=== PATIENT | male | born 1965 | race Caucasian/White ===

== ENCOUNTER 2016-07-06 11:48 | Emergency (ER) | payer OTHER ==
[2016-07-06 12:00] VITALS: RESP 16; O2SAT 98
[2016-07-06] MEDS ORDERED: NS 1,000 ML IV ONE (12:30)
[2016-07-06 12:38] LABS: % IMMATURE GRANULYOCYTES 0.4 % (0.0-1.1); ABSOLUTE IMMATURE GRANULOCYTES 0.03 10^3/uL (0.00-0.10); ADD DIFF? NO; ADD MORPH? NO; ADD SCAN? NO; ATYPICAL LYMPHOCYTE FLAG 0 (0-99); FRAGMENT RBC FLAG 0 (0-99); HEMATOCRIT 44.8 % (40.0-51.0); HEMOGLOBIN 15.7 g/dL (13.7-17.5); LEFT SHIFT FLG 0 (0-99); LIPEMIA HEMOLYSIS FLAG 90 (0-99); MEAN CELL HEMOGLOBIN 30.9 pg (27.9-34.1); MEAN CELL VOLUME 88.2 fL (81.5-99.8); MEAN PLATELET VOLUME 10.8 fL (8.7-11.7); PLATELET CLUMPS FLAG 0 (0-99); PLATELET COUNT 212 10^3/uL (150-400); RED BLOOD CELL COUNT 5.08 10^6/uL (4.40-6.38); RED CELL DISTRIBUTION WIDTH 12.1 % (11.5-15.2)
--- NOTE | 2016-07-06 12:39 | CPEKG ---
Heart Rate: 50 RR Interval: 1200 P-R Interval: 192 QRSD Interval: 102 QT Interval: 400 QTC Interval: 365 P [place]: 77 QRS [place]: 46 T Wave [place]: 53 EKG Severity - NORMAL ECG - EKG Impression: SINUS RHYTHM Electronically Signed By: Prabhakar Anthony 06-Jul-2016 14:16:13
[2016-07-06 12:50] LABS: ANION GAP 16 mEq/L (8-16); CALCIUM 9.2 mg/dL (8.5-10.4); CARBON DIOXIDE 26 mEq/l (22-31); CHLORIDE 98 mEq/L (97-110); CREATININE 0.8 mg/dL (0.7-1.3); GLOMERULAR FILTRATION RATE > 60; GLUCOSE 90 mg/dL (70-100); SODIUM 140 mEq/L (134-144)
[2016-07-06 13:26] LABS: TROPONIN I < 0.012 ng/mL (0-0.034)
--- NOTE | 2016-07-06 13:32 | EDPHY ---
H & P Time Seen by Provider: 07/06/16 12:07 HPI/ROS: Chief complaint. Facial numbness HPI. 42-year-old male presents emergency department with complaint that yesterday afternoon he had some pain above his left eyebrow. It resolved after taking Advil. Return this morning. About 9:00 a.m. he developed left facial altered sensation that he describes as Novocain wearing off. His tongue is okay. His vision is okay. He has no neck pain, chest pain, shortness of breath , abdominal pain. No weakness or altered sensation to arms or legs. No similar symptoms previously. ROS Constitutional. no fever/chills, no weakness Eyes. no problems with vision ENT. no sore throat, no nasal drainage Cardiovascular. no chest pain Respiratory. no shortness of breath, no cough Abdominal. no abdominal pain, no nausea/vomiting, no diarrhea . no problems urinating MS. no calf pain/swelling, no neck/back pain, no joint pain Skin. no rash Lymph. no swollen glands Neuro. Left facial altered sensation Past Medical/Surgical History: Anal fissure and cervical radiculopathy Social History: Single, nonsmoker, no alcohol Smoking Status: Never smoked Physical Exam: General Appearance: Alert well-developed male mild distress vital signs are stable Eyes: Pupils equal and round no pallor or injection. ENT, Mouth: Mucous membranes are moist. Respiratory: There are no retractions, lungs are clear to auscultation. Cardiovascular: Regular rate and rhythm. Gastrointestinal: Abdomen is soft and nontender, no masses, bowel sounds normal. Neurological: Awake and alert, sensory and motor exams grossly normal. Speech is normal. Cranial nerves are intact. To my light touch on both sides of his face he feels that the sensation is equal but he feels that his sensation is not quite normal on the left though I cannot demonstrate this. There is no pronator drift. [id number] and [id number] are intact Skin: Warm and dry, no rashes. Musculoskeletal: Neck is supple nontender. Extremities symmetrical, full range of motion. Psychiatric: Patient is oriented X 3, there is no agitation. Constitutional: Initial Vital Signs Heart Rate 63 07/06/16 11:57 Respiratory Rate 16 07/06/16 11:57 Blood Pressure 130/74 H 07/06/16 11:57 O2 Sat (%) 98 07/06/16 11:57 O2 Delivery Mode Room Air Allergies/Adverse Reactions: No Known Allergies Allergy (Verified 07/06/16 12:00) Medical Decision Making - Diagnostics EKG Interpretation: EKG interpreted by me shows normal sinus rhythm with normal interval and axis. QRS is normal there is no significant ST elevation or depression. There is no arrhythmia. The rate is 50 Procedures: IV normal saline, monitor Prednisone 60 mg by mouth ED Course/Re-evaluation: I consulted and discussed case with Dr. ortiz, neurology who recommends MRI. He feels that as the patient really has no risk factors and has normal exam and symptoms have been somewhat present since yesterday afternoon this may be developing Charles's palsy. He recommends either transfer to [facility] for MRI today or to start the patient on prednisone today and he will see the patient in the office tomorrow. I have discussed these options with the patient. We discussed risks and benefits of these courses of treatment Re-evaluation 1:30 p.m.--patient is stable. He appears neurologically stable though he does tell me he still feels somewhat altered sensation on the left cheek. There is no evidence for facial weakness. I again offered to arrange MRI today of however he is comfortable waiting till tomorrow to see Neurology Differential Diagnosis: I have considered CVA, brain tumor, migraine, anxiety, Charles's palsy - Data Points Laboratory Results: Laboratory Results 07/06/16 12:07 07/06/16 12:07 07/06/16 07/06/16 12:07 12:07 WBC 7.80 10^3/uL 10^3/uL (3.80-9.50) RBC 5.08 10^6/uL 10^6/uL (4.40-6.38) Hgb 15.7 g/dL g/dL (13.7-17.5) Hct 44.8 % % (40.0-51.0) MCV 88.2 fL fL (81.5-99.8) MCH 30.9 pg pg (27.9-34.1) MCHC 35.0 g/dL g/dL (32.4-36.7) RDW 12.1 % % (11.5-15.2) Plt Count 212 10^3/uL 10^3/uL (150-400) MPV 10.8 fL fL (8.7-11.7) Neut % (Auto) 62.9 % % (39.3-74.2) Lymph % (Auto) 27.3 % % (15.0-45.0) [place] % (Auto) 7.4 % % (4.5-13.0) Eos % (Auto) 1.5 % % (0.6-7.6) Baso % (Auto) 0.5 % % (0.3-1.7) Nucleat RBC Rel Count 0.0 % % (0.0-0.2) Absolute Neuts (auto) 4.90 10^3/uL 10^3/uL (1.70-6.50) Absolute Lymphs (auto) 2.13 10^3/uL 10^3/uL (1.00-3.00) Absolute Monos (auto) 0.58 10^3/uL 10^3/uL (0.30-0.80) Absolute Eos (auto) 0.12 10^3/uL 10^3/uL (0.03-0.40) Absolute Basos (auto) 0.04 10^3/uL 10^3/uL (0.02-0.10) Absolute Nucleated RBC 0.00 10^3/uL 10^3/uL (0-0.01) Immature Gran % 0.4 % % (0.0-1.1) Immature Gran # 0.03 10^3/uL 10^3/uL (0.00-0.10) Sodium 140 mEq/L mEq/L (134-144) Potassium 4.0 mEq/L mEq/L (3.5-5.2) Chloride 98 mEq/L mEq/L (97-110) Carbon Dioxide 26 mEq/l mEq/l (22-31) Anion Gap 16 mEq/L mEq/L (8-16) BUN 12 mg/dL mg/dL (7-23) Creatinine 0.8 mg/dL mg/dL (0.7-1.3) Estimated GFR > 60 Glucose 90 mg/dL mg/dL (70-100) Calcium 9.2 mg/dL mg/dL (8.5-10.4) Troponin I < 0.012 ng/mL ng/mL (0-0.034) Medications Given: Discontinued Medications Sodium Chloride (Ns) 1,000 mls @ 0 mls/hr IV ONCE ONE PRN Reason: Wide Open Stop: 07/06/16 12:31 Last Admin: 07/06/16 12:30 Dose: 1,000 mls Departure - Departure Disposition: Home, Routine, Self-Care Clinical Impression: Paresthesia Condition: Good Instructions: Paresthesia (ED) Additional Instructions: May use ibuprofen 600 mg as needed for headache. Return for worsening head pain or focal weakness to arms or legs. Call today to make follow-up appointment with Dr. Ortiz for further evaluation tomorrow. Referrals: NONE *PRIMARY CARE P,. [Primary Care Provider] - As per Instructions Pastor Ortiz, [Medical Doctor] - 1 day without fail
[2016-07-06] MEDS ORDERED: predniSONE 20 MG TAB PO ONE (13:40)
[2016-07-06 13:54] VITALS: BP 117/78; PULSE 52
== END 2016-07-06 13:50 | disposition home or self-care (01) ==
LOC: CED 11:48
DX: R20.2 Paresthesia of skin (principal)
CPT/HCPCS: 80048-PO; 84484-PO; 85025-PO

== ENCOUNTER → 2016-07-18 | Outpatient (CLI) | payer OTHER ==
[~2016-07-18] MED LIST: GADOBUTROL 10 ML VIAL IVP ONE
== END ==
LOC: FIMAGING 08:00
PROVIDERS: ATTEND Psychiatry & Neurology Neurology
DX: R51 Headache (principal); R20.2 Paresthesia of skin; D18.02 Hemangioma of intracranial structures
CPT/HCPCS: A9585